=== PATIENT | male | born 1960 | race Caucasian/White ===

== ENCOUNTER 2019-04-01 06:18 | Emergency (ER) | payer MEDICARE ==
[~2019-04-01] VITALS: Ht 188 cm; Wt 107.8 kg
[2019-04-01 07:20] LABS: BASO % 1 % (0-3); EOS # 0.1 x10^3/uL (0.0-0.7); EOS % 1 % (0-3); HEMOGLOBIN 13.8 g/dL (13.0-17.5); LYMPH # 2.2 x10^3/uL (1.0-4.8); LYMPH % 25 % (24-48); MEAN CORPUSCULAR HEMOGLOBIN 27 pg (25-35); MEAN CORPUSCULAR HGB CONC 34 g/dL (31-37); MEAN CORPUSCULAR VOLUME 81 fL (79-100); MONO # 0.7 x10^3/uL (0.0-1.1); MONO % 8 % (0-9); NEUT # 5.6 x10^3uL (1.8-7.7); NEUT % 65 % (31-73); PLATELET COUNT 225 x10^3/uL (140-400); RED BLOOD COUNT 5.07 x10^6/uL (4.30-5.70); RED CELL DISTRIBUTION WIDTH 15.9 % (11.5-14.5); WHITE BLOOD COUNT 8.5 x10^3/uL (4.0-11.0)
[2019-04-01 07:22] LABS: CALCIUM 8.9 mg/dL (8.5-10.1); CREATININE 1.1 mg/dL (0.7-1.3); POTASSIUM 4.1 mmol/L (3.5-5.1)
[2019-04-01 07:28] LABS: ALBUMIN 3.3 g/dL (3.4-5.0); ALBUMIN/GLOBULIN RATIO 0.8 (1.0-1.7); C REACTIVE PROTEIN 10.8 mg/L (0-3.3); TOTAL BILIRUBIN 0.4 mg/dL (0.2-1.0); TOTAL PROTEIN 7.6 g/dL (6.4-8.2)
[2019-04-01 07:41] VITALS: BP 129/81
--- NOTE | 2019-04-01 07:45 | RAD ---
FOOT LEFT 3V DATE: 04/01/2019 6:45 AM INDICATION: Infection COMPARISON: None. FINDINGS/ IMPRESSION: No acute fracture or osseous erosions. First digit amputation at the MTP joint. Dorsal displacement of the second digit at the MCP joint. Forefoot soft tissue swelling. Electronically signed by: Hermann Contreras MD (04/01/2019 7:42 AM) [facility]
[2019-04-01] MEDS ORDERED: CLIN300C8 PO (07:55)
[2019-04-01 08:28] LABS: SEDIMENTATION RATE 19 (0-15)
--- NOTE | 2019-04-01 08:39 | PHYS DOC ---
Past History Past Medical History: Anxiety, Diabetes, GERD, Hypertension, Other Additional Past Medical Histor: osteomyelitis, TBI, subdural hematoma Past Surgical History: Other Alcohol Use: None Drug Use: Marijuana Adult General Chief Complaint Chief Complaint: FOOT INJURY PAIN [facility] HPI Patient is a 58-year-old male presenting with foot swelling on the left. He has a history of osteomyelitis he is status post a transmetatarsal amputation on the right and a great toe limitation the left a couple years back he's been off his diabetes pills for couple weeks now he just [place] a different [place] he is working on getting a primary care doctor he thinks he will have one soon no fever he has been on his feet for 8 or 10 hours a day and his doctors told him after his foot surgeries to stay on his feet for 4 hours only mild dull pain. Review of Systems Review of Systems Constitutional: Denies fever or chills [] Eyes: Denies change in visual acuity, redness, or eye pain [] HENT: Denies nasal congestion or sore throat [] Respiratory: Denies cough or shortness of breath [] Cardiovascular: No additional information not addressed in HPI [] GI: Denies abdominal pain, nausea, vomiting, bloody stools or diarrhea [] : Denies dysuria or hematuria [] Neurologic: Denies headache, focal weakness or sensory changes [] All other systems were reviewed and found to be within normal limits, except as documented in this note. Allergies Allergies Allergies Coded Allergies Type Severity Reaction Last Updated Verified No Known Drug Allergies 04/01/19 No Physical Exam Physical Exam Constitutional: Well developed, well nourished, no acute distress, non-toxic appearance. [] HENT: Normocephalic, atraumatic, bilateral external ears normal, oropharynx moist, no oral exudates, nose normal. [] Eyes: PERRLA, EOMI, conjunctiva normal, no discharge. [] Neck: Normal range of motion, no tenderness, supple, no stridor. [] Pulmonary: Normal respiratory effort no increased work of breathing no obvious chest wall trauma Abdomen: Bowel sounds normal, soft, no tenderness, no masses, no pulsatile masses. [] Skin: See below Extremities: There is mild soft tissue swelling noted of the left foot distally mild erythema and warmth noted around the surgical incision at the base of the second toe. No fluctuance swelling or tenderness by mouth pulses present Neurologic: Alert and oriented X 3, normal motor function, normal sensory function, no focal deficits noted. [] Psychologic: Affect normal, judgement normal, mood normal. [] Current Patient Data Vital Signs Vital Signs Date Time Temp Pulse Resp B/P (MAP) Pulse Ox O2 Delivery O2 Flow Rate FiO2 04/01/19 07:41 60 16 129/81 (97) 97 Room Air 04/01/19 06:38 97.7 Lab Results Laboratory Tests Test 04/01/19 06:55 White Blood Count 8.5 x10^3/uL (4.0-11.0) Red Blood Count 5.07 x10^6/uL (4.30-5.70) Hemoglobin 13.8 g/dL (13.0-17.5) Hematocrit 41.0 % (39.0-53.0) Mean Corpuscular Volume 81 fL (79-100) Mean Corpuscular Hemoglobin 27 pg (25-35) Mean Corpuscular Hemoglobin Concent 34 g/dL (31-37) Red Cell Distribution Width 15.9 % (11.5-14.5) H Platelet Count 225 x10^3/uL (140-400) Neutrophils (%) (Auto) 65 % (31-73) Lymphocytes (%) (Auto) 25 % (24-48) Monocytes (%) (Auto) 8 % (0-9) Eosinophils (%) (Auto) 1 % (0-3) Basophils (%) (Auto) 1 % (0-3) Neutrophils # (Auto) 5.6 x10^3uL (1.8-7.7) Lymphocytes # (Auto) 2.2 x10^3/uL (1.0-4.8) Monocytes # (Auto) 0.7 x10^3/uL (0.0-1.1) Eosinophils # (Auto) 0.1 x10^3/uL (0.0-0.7) Basophils # (Auto) 0.0 x10^3/uL (0.0-0.2) Erythrocyte Sedimentation Rate 19 (0-15) H Sodium Level 143 mmol/L (136-145) Potassium Level 4.1 mmol/L (3.5-5.1) Chloride Level 105 mmol/L (98-107) Carbon Dioxide Level 27 mmol/L (21-32) Anion Gap 11 (6-14) Blood Urea Nitrogen 14 mg/dL (8-26) Creatinine 1.1 mg/dL (0.7-1.3) Estimated GFR (Cockcroft-Gault) 69.0 BUN/Creatinine Ratio 13 (6-20) Glucose Level 92 mg/dL (70-99) Calcium Level 8.9 mg/dL (8.5-10.1) Total Bilirubin 0.4 mg/dL (0.2-1.0) Aspartate Amino Transferase (AST) 19 U/L (15-37) Alanine Aminotransferase (ALT) 29 U/L (16-63) Alkaline Phosphatase 126 U/L (46-116) H C-Reactive Protein 10.8 mg/L (0-3.3) H Total Protein 7.6 g/dL (6.4-8.2) Albumin 3.3 g/dL (3.4-5.0) L Albumin/Globulin Ratio 0.8 (1.0-1.7) L EKG EKG [] Radiology/Procedures Radiology/Procedures [] Impressions: COMPARISON: None. FINDINGS/ IMPRESSION: No acute fracture or osseous erosions. First digit amputation at the MTP joint. Dorsal displacement of the second digit at the MCP joint. Forefoot soft tissue swelling. Electronically signed by: Stuart Taylor MD (04/01/2019 7:42 AM) [facility] DICTATED AND SIGNED BY: STUART TAYLOR MD DATE: 04/01/19 0742 CC: CASSANDRA STONER MD; PCP,NO ~ Course & Med Decision Making Course & Med Decision Making Pertinent Labs and Imaging studies reviewed. (See chart for details) []This is a pleasant 58-year-old gentleman with a history of diabetes and prior osteomyelitis of the feet presenting with left foot swelling for a couple weeks now in the setting of standing on his feet for long periods of time possible mil d cellulitis on clinical examination x-ray shows no evidence of osteomyelitis at this time. ESR is barely elevated CRP is up nonspecific white count normal overall clinical findings are not definitive. I think if the patient takes better care of his feet keeps them elevated take clindamycin for possible early cellulitis I did tell the patient try the antibiotics keep feet elevated come back for any new or worsening symptoms do fairly obtain primary care follow-up for close monitoring he is comfortable with the plan and discharged in stable condition. Dragon Disclaimer Dragon Disclaimer This electronic medical record was generated, in whole or in part, using a voice recognition dictation system. Departure Departure: Impression: Primary Impression: Cellulitis Disposition: HOME, SELF-CARE Condition: STABLE Patient Instructions: Cellulitis, [id number] Scripts Clindamycin Hcl (CLINDAMYCIN HCL) 300 Mg Capsule 1 CAP PO TID for cellulitis, #30 CAP Prov: CASSANDRA STONER MD 04/01/19 CASSANDRA STONER MD Apr 01, 2019 08:39
== END 2019-04-01 08:08 | disposition home or self-care (01) ==
LOC: ER 06:18
DX: L03.116 Cellulitis of left lower limb (principal); E11.9 Type 2 diabetes mellitus without complications; K21.9 Gastro-esophageal reflux disease without esophagitis; I10 Essential (primary) hypertension
CPT/HCPCS: 36415; 73630; 80053; 85025; 85651; 86140; 99285

== ENCOUNTER 2020-06-06 15:38 | Emergency (ER) | payer MEDICARE, MEDICAID ==
[~2020-06-06] VITALS: Ht 188 cm; Wt 107.8 kg
[~2020-06-06 15:38] MED LIST: CLIN300C9 PO
[2020-06-06] MEDS ORDERED: IV NORMAL SALINE 1,000ML 1,000 ML IV SCH (16:00)
--- NOTE | 2020-06-06 16:08 | PHYS DOC ---
Past History Past Medical History: Anxiety, Diabetes, GERD, Hypertension, Other Additional Past Medical Histor: osteomyelitis, TBI, subdural hematoma Past Surgical History: Other Alcohol Use: None Drug Use: Marijuana Adult General Chief Complaint Chief Complaint: CELLULITIS HPI HPI Patient is a 59-year-old male with past with history of hypertension diabetes as well as a history of prior toe resection now presenting emergency department for new onset of pain and swelling in his left second toe. Patient states that over the last week he is having worsening pain and swelling in the left second digit. States that it got more swollen and painful today. Of note he has no neuropathy of the last procedure to remove his left great toe was approximate 1 year ago. Denies any fever, chills, nausea, vomit, chest pain or shortness breath. Review of Systems Review of Systems Constitutional: Denies fever or chills [] Eyes: Denies change in visual acuity, redness, or eye pain [] HENT: Denies nasal congestion or sore throat [] Respiratory: Denies cough or shortness of breath [] Cardiovascular: No additional information not addressed in HPI [] GI: Denies abdominal pain, nausea, vomiting, bloody stools or diarrhea [] : Denies dysuria or hematuria [] Musculoskeletal: Denies back pain or joint pain [] Integument: Denies rash or skin lesions [] Neurologic: Denies headache, focal weakness or sensory changes [] Endocrine: Denies polyuria or polydipsia [] All other systems were reviewed and found to be within normal limits, except as documented in this note. Current Medications Current Medications Current Medications Medications (Trade) Dose Ordered Sig/[facility] Start Time Stop Time Status Last Admin Dose Admin Sodium Chloride 1,000 ml @ 1,000 mls/hr Q1H 06/06/20 16:00 06/06/20 16:59 Allergies Allergies Allergies Coded Allergies Type Severity Reaction Last Updated Verified No Known Drug Allergies 04/01/19 No Physical Exam Physical Exam Constitutional: Well developed, well nourished, no acute distress, non-toxic appearance. [] HENT: Normocephalic, atraumatic, bilateral external ears normal, oropharynx moist, no oral exudates, nose normal. [] Eyes: PERRLA, EOMI, conjunctiva normal, no discharge. [] Neck: Normal range of motion, no tenderness, supple, no stridor. [] Cardiovascular:Heart rate regular rhythm, no murmur [] Lungs & Thorax: Bilateral breath sounds clear to auscultation [] Abdomen: Bowel sounds normal, soft, no tenderness, no masses, no pulsatile masses. [] Skin: Warm, dry, no erythema, no rash. [] Back: No tenderness, no CVA tenderness. [] Extremities: No tenderness, no cyanosis, no clubbing, ROM intact, no edema. Left second toe exquisitely tender and erythematous with distal open wound with exposed bone and diffusely erythematous Neurologic: Alert and oriented X 3, normal motor function, normal sensory function, no focal deficits noted. [] Psychologic: Affect normal, judgement normal, mood normal. [] EKG EKG [] Radiology/Procedures Radiology/Procedures Left foot 3 views. HISTORY: Fourth toe infection osteomyelitis 3 views were taken the left foot. Comparison is made with a study from March 2019. There is been a previous amputation of the great toe. There is bony destruction at the distal phalanx of the second toe. There has either been prior resection or destruction at the head of the second metatarsal. There is a new bony destructive process involving the head of the third metatarsal. There is also irregularity at the head of the fourth metatarsal. There is soft tissue swelling. IMPRESSION: 1. Previous amputation great toe. 2. Bony changes suggesting chronic osteomyelitis at the second third and fourth metatarsal heads. 3. Bony destruction distal phalanx left second toe with soft tissue swelling of the second toe. Electronically signed by: Francisco Peña MD (06/06/2020 4:15 PM) [facility] Heart Score Risk Factors: Risk Factors: DM, Current or recent (<one month) smoker, HTN, HLP, family history of CAD, obesity. Risk Scores: Risk Factors: DM, Current or recent (<one month) smoker, HTN, HLP, family history of CAD, obesity. Course & Med Decision Making Course & Med Decision Making Pertinent Labs and Imaging studies reviewed. (See chart for details) 51-year-old male with suspected osteomyelitis left great toe. Will obtain an x- ray, get labs and provide antibiotics. Dragon Disclaimer Dragon Disclaimer This electronic medical record was generated, in whole or in part, using a voice recognition dictation system. Departure Departure: Referrals: NATALYA HORNE MD (PCP) TYRA BUSTOS MD Jun 06, 2020 16:08
--- NOTE | 2020-06-06 16:18 | EKG ---
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
--- NOTE | 2020-06-06 16:18 | RAD ---
Left foot 3 views. HISTORY: Fourth toe infection osteomyelitis 3 views were taken the left foot. Comparison is made with a study from March 2019. There is been a previous amputation of the great toe. There is bony destruction at the distal phalanx of the second t oe. There has either been prior resection or destruction at the head of the second metatarsal. There is a new bony destructive process involving the head of the third metatarsal. There is also irregular ity at the head of the fourth metatarsal. There is soft tissue swelling. IMPRESSION: 1. Previous amputation great toe. 2. Bony changes suggesting chronic osteomyelitis at the second third and fourth metatarsal heads. 3. Bony destruction distal phalanx left second toe with soft tissue swelling of the second toe. Electronically signed by: Francisco Peña MD (06/06/2020 4:15 PM) [facility]
[2020-06-06] MEDS ORDERED: IV NORMAL SALINE 50ML 50 ML ONE (16:39)
[2020-06-06] MEDS ORDERED: ceFAZolin SODIUM 1 GM VIAL ONE (16:39)
[2020-06-06 17:01] LABS: BASO # 0.1 x10^3/uL (0.0-0.2); BASO % 1 % (0-3); EOS # 0.1 x10^3/uL (0.0-0.7); EOS % 1 % (0-3); HEMATOCRIT 45.1 % (39.0-53.0); HEMOGLOBIN 15.2 g/dL (13.0-17.5); LYMPH # 2.7 x10^3/uL (1.0-4.8); LYMPH % 30 % (24-48); MEAN CORPUSCULAR HEMOGLOBIN 29 pg (25-35); MEAN CORPUSCULAR HGB CONC 34 g/dL (31-37); MEAN CORPUSCULAR VOLUME 86 fL (79-100); MONO # 1.1 x10^3/uL (0.0-1.1); MONO % 12 % (0-9); NEUT # 5.2 x10^3uL (1.8-7.7); NEUT % 56 % (31-73); PLATELET COUNT 163 x10^3/uL (140-400); RED BLOOD COUNT 5.25 x10^6/uL (4.30-5.70); RED CELL DISTRIBUTION WIDTH 12.7 % (11.5-14.5); WHITE BLOOD COUNT 9.2 x10^3/uL (4.0-11.0)
[2020-06-06 17:08] LABS: CALCIUM 9.1 mg/dL (8.5-10.1); CREATININE 1.2 mg/dL (0.7-1.3); GFR 62.2; POTASSIUM 3.9 mmol/L (3.5-5.1)
[2020-06-06] MEDS ORDERED: oxyCODONE/APAP 5/325 1 TAB TABLET PO ONE (17:30)
[2020-06-06 18:25] VITALS: BP 154/88
[2020-06-06 18:48] LABS: BILIRUBIN,URINE NEG (NEG); CLARITY,URINE CLEAR; COLOR,URINE AMBER; GLUCOSE,URINE NEG (NEG); NITRITE,URINE NEG (NEG); UROBILINOGEN,URINE 0.2 mg/dL (0.2 mg/dL)
[2020-06-06 18:49] LABS: BACTERIA,URINE 0 /HPF (0-FEW); RBC,URINE 0 /HPF (0-2); SQUAMOUS EPITHELIAL CELL,UR OCC /LPF; WBC,URINE 0 /HPF (0-4)
== END 2020-06-06 19:47 | disposition short-term general hospital (02) ==
LOC: ER 15:38
DX: M79.675 Pain in left toe(s) (principal); R22.42 Localized swelling, mass and lump, left lower limb; K21.9 Gastro-esophageal reflux disease without esophagitis; E11.9 Type 2 diabetes mellitus without complications; I10 Essential (primary) hypertension; Z87.820 Personal history of traumatic brain injury
CPT/HCPCS: 36415; 73630; 80048; 81001; 83605; 85025; 85610; 85730; 87040; 93005; 96361; 96374; 99285; J0690; J7030

== ENCOUNTER 2021-03-13 10:37 | Emergency (ER) | payer MEDICARE, MEDICAID ==
[~2021-03-13] VITALS: Ht 188 cm; Wt 117.1 kg
[2021-03-13 10:37] VITALS: BP 160/92
[~2021-03-13 10:37] MED LIST changes: +CLIN-95 PO; -CLIN300C9 PO
--- NOTE | 2021-03-13 11:04 | PHYS DOC ---
Past History Past Medical History: Anxiety, Diabetes, GERD, Hypertension, Other Additional Past Medical Histor: osteomyelitis, TBI, subdural hematoma Past Surgical History: Other Additional Past Surgical Histo: L toe amputation & half of right foot. Alcohol Use: None Drug Use: Marijuana Adult General Chief Complaint Chief Complaint: COUGH HPI HPI Patient is a 60-year-old male patient with history of diabetes type 2, hypertension, high cholesterol, bronchitis, who presents the ED today stating "I think I have bronchitis or the flu". He states for the last 3 days he has had a productive cough, some congestion, slight dizziness, and body aches. Denies any fever. He states he is not vaccinated against COVID-19 or influenza. Review of Systems Review of Systems Constitutional: Reports body aches, denies fever or chills Eyes: Denies change in visual acuity, redness, or eye pain [] HENT: Reports nasal congestion, denies sore throat [] Respiratory: Reports cough, denies shortness of breath Cardiovascular: No additional information not addressed in HPI [] GI: Denies abdominal pain, nausea, vomiting, bloody stools or diarrhea [] : Denies dysuria or hematuria [] Musculoskeletal: Denies back pain or joint pain [] Integument: Denies rash or skin lesions [] Neurologic: Reports slight dizziness. Denies headache, focal weakness or sensory changes [] All other systems were reviewed and found to be within normal limits, except as documented in this note. Allergies Allergies Allergies Coded Allergies Type Severity Reaction Last Updated Verified No Known Drug Allergies 04/01/19 No Physical Exam Physical Exam Constitutional: Obese patient, no acute distress, non-toxic appearance. [] HENT: Normocephalic, atraumatic, bilateral external ears normal, oropharynx moist, no oral exudates, nose normal. [] Eyes: PERRLA, EOMI, conjunctiva normal, no discharge. [] Neck: Normal range of motion, no tenderness, supple, no stridor. [] Cardiovascular:Heart rate regular rhythm, no murmur [] Lungs & Thorax: Bilateral breath sounds clear to auscultation [] Abdomen: Bowel sounds normal, soft, no tenderness, no masses, no pulsatile masses. [] Skin: Warm, dry, no erythema, no rash. [] Back: No tenderness, no CVA tenderness. [] Extremities: No tenderness, no cyanosis, no clubbing, ROM intact, no edema. [] Neurologic: Alert and oriented X 3, normal motor function, normal sensory function, no focal deficits noted. [] Psychologic: Affect normal, judgement normal, mood normal. [] EKG EKG [] Radiology/Procedures Radiology/Procedures []PROCEDURE: CHEST AP ONLY EXAM: Chest, single view. HISTORY: Cough. COMPARISON: None. FINDINGS: A frontal view of the chest is obtained. There is no infiltrate, pleural effusion or pneumothorax. The heart is normal in size. IMPRESSION: No acute pulmonary finding. Electronically signed by: Cb Sandoval MD (03/13/2021 12:09 PM) [id number] DICTATED AND SIGNED BY: CB SANDOVAL MD DATE: 03/13/211208 CC: NATALYA HORNE MD; JOSÉ MIGUELJamesDEMETRA RECREATION OFFICER ~MTH0 0 Heart Score C/O Chest Pain: N/A Risk Factors: Risk Factors: DM, Current or recent (<one month) smoker, HTN, HLP, family history of CAD, obesity. Risk Scores: Risk Factors: DM, Current or recent (<one month) smoker, HTN, HLP, family history of CAD, obesity. Course & Med Decision Making Course & Med Decision Making Pertinent Labs and Imaging studies reviewed. (See chart for details) This is a 60-year-old male patient presenting to the ED today concerned he has influenza or bronchitis. Patient is complaining of a productive cough, nasal congestion and an episode of slight dizziness, symptoms for 3 days. Chest x-ray interpreted by radiologist as negative for any acute findings. Negative influenza a and B. Pending Covid test. Instructed to quarantine himself until results are back. Supportive care measures recommended Dragon Disclaimer Dragon Disclaimer This electronic medical record was generated, in whole or in part, using a voice recognition dictation system. Departure Departure: Impression: Primary Impression: Cough Additional Impressions: Person under investigation for COVID-19 URI (upper respiratory infection) Disposition: HOME / SELF CARE / HOMELESS Condition: STABLE Referrals: NATALYA HORNE MD (PCP) follow up in one week Patient Instructions: Cough, Adult, [id number], Upper Respiratory Infection, Adult, [id number] Additional Instructions: You were evaluated in the emergency room with symptoms suspicious of a viral illness. Your Covid PCR test is pending. We will call you when results are back, quarantine yourself until then. Your chest x-ray is negative for any acute findings, your influenza A and B rapid test are negative. Rest, push fluids, maintain good hand hygiene. Come back to the ED at any point symptoms worsen Scripts Albuterol Sulfate (VENTOLIN HFA INHALER) 18 Gm Hfa.aer.ad 1 PUFF IH PRN Q4HRS PRN for FOR ASTHMA, #1 EACH 0 Refills Prov: DEMETRA LAIRD APRN 03/13/21 Benzonatate (BENZONATATE) 100 Mg Capsule 1 CAP PO TID, #30 CAP Prov: DEMETRA LAIRD APRN 03/13/21 Problem Qualifiers Additional Impressions: URI (upper respiratory infection) URI type: unspecified URI Qualified Codes: J06.9 - Acute upper respiratory infection, unspecified DEMETRA LAIRD APRN Mar 13, 2021 11:04
[2021-03-13 11:34] LABS: INFLUENZA A PATIENT NEGATIVE (NEGATIVE); INFLUENZA B PATIENT NEGATIVE (NEGATIVE)
--- NOTE | 2021-03-13 12:11 | RAD ---
EXAM: Chest, single view. HISTORY: Cough. COMPARISON: None. FINDINGS: A frontal view of the chest is obtained. There is no infiltrate, pleural effusion or pneumo thorax. The heart is normal in size. IMPRESSION: No acute pulmonary finding. Electronically signed by: Chiqui Sandoval MD (03/13/2021 12:09 PM) [id number]
[2021-03-13] MEDS ORDERED: BENZ-8 PO (12:37)
[2021-03-13] MEDS ORDERED: ALBU2.5V8 IH (12:37)
== END 2021-03-13 12:40 | disposition home or self-care (01) ==
LOC: ER 10:37
DX: J06.9 Acute upper respiratory infection, unspecified (principal); F41.9 Anxiety disorder, unspecified; E11.9 Type 2 diabetes mellitus without complications; K21.9 Gastro-esophageal reflux disease without esophagitis; I10 Essential (primary) hypertension; E78.00 Pure hypercholesterolemia, unspecified; Z20.822 Contact with and (suspected) exposure to COVID-19; Z87.820 Personal history of traumatic brain injury
CPT/HCPCS: 71045; 87804; 99284; C9803; U0003